=== PATIENT | female | born 1990 | race Caucasian/White ===

== ENCOUNTER 2019-05-06 22:31 | Observation (INO) ==
[2019-05-06 22:56] LABS: Bilirubin,Urine Negative (Negative); Blood,Urine Negative (Negative); Clarity,Urine Cloudy (Clear); Color,Urine Yellow (Yellow); Glucose,Urine (UA) Normal (Normal); Ketones,Urine Trace mg/dL (Negative); Leukocyte Esterase,Urine Negative (Negative); Nitrite,Urine Negative (Negative); PH,Urine 6.5 pH Units (5.0-8.0); Protein,Urine Negative (Neg-Trace); Specific Gravity,Urine 1.009 (1.010-1.025); Urobilinogen,Urine Normal (Normal)
[2019-05-06 22:59] LABS: Bacteria,Urine Few per hpf (None-Few); Hyaline Casts,Urine None Seen per lpf (None-Few); RBC,Urine 0-3 per hpf (0-3); Squamous Epithelial Cell,Urine Many per lpf (None-Few)
[2019-05-06 23:07] LABS: Amphetamine Screen,Urine Negative ng/mL (Cutoff=1000); Barbiturate Screen,Urine Negative ng/mL (Cutoff=200); Benzodiazepines Screen,Urine Negative ng/mL (Cutoff=200); Cannabinoid Screen,Urine Negative ng/mL (Cutoff = 50); Cocaine Screen,Urine Negative ng/mL (Cutoff= 300); Opiate Screen,Urine Negative ng/mL (Cutoff=300); Phencyclidine Screen,Urine Negative ng/mL (Cutoff=25)
[2019-05-07 00:22] LABS: Trichomonas DNA Not Detected (Not Detect)
[2019-05-07 00:23] LABS: Candida DNA Not Detected (Not Detect); Gardnerella DNA Not Detected (Not Detect)
--- NOTE | 2019-05-07 00:50 | Discharge Summary ---
Date of Encounter: 05/07/19 Time of Encounter: 00:50 - Discharge Diagnosis (1) 34 weeks gestation of Priority: Primary Status: Acute Comments: Follow-up as scheduled Discharge home (2) Vaginal discharge during in third trimester Priority: Secondary Status: Acute Comments: UA showed mild dehydration-advised to increase oral hydration Vaginosis panel negative - Discharge Medications Prescriptions: No Action Flintstones 1 tab PO DAILY Melatonin/Pyridoxine HCl (B6) [Melatonin 1 mg Tablet] 1 mg PO DAILY PRN PRN Reason: Insomnia Home Medications: Flintstones 1 tab PO DAILY 05/06/19 [History] Melatonin/Pyridoxine HCl (B6) [Melatonin 1 mg Tablet] 1 mg PO DAILY PRN 05/06/19 [History] Allergies/Adverse Reactions: Allergy/AdvReac Type Severity Reaction Status Date / Time niacin Allergy Swelling Verified 05/06/19 22:58 of Lip/Tongue/Throat vancomycin Allergy Swelling Verified 05/06/19 22:58 of Lip/Tongue/Throat Data Procedures and tests throughout hospitalization: Laboratory Tests 05/06/19 05/06/19 05/06/19 22:40 22:40 23:11 Urine Color Yellow Urine Clarity Cloudy A Urine pH 6.5 Ur Specific [place] 1.009 L Urine Protein Negative Urine Glucose (UA) Normal Urine Ketones Trace H Urine Blood Negative Urine Nitrite Negative Urine Bilirubin Negative Urine Urobilinogen Normal Ur Leukocyte Esterase Negative Urine Microscopic RBC 0-3 Urine Microscopic WBC 3-5 H Ur Squamous Epith Cells Many H Urine Bacteria Few Hyaline Casts None Seen Ur Culture Indicated? YES A Urine Opiates Screen Negative Ur Buprenorphine Scrn Negative Ur Barbiturates Screen Negative Ur Phencyclidine Scrn Negative Ur Amphetamines Screen Negative U Benzodiazepines Scrn Negative Urine Cocaine Screen Negative U Marijuana (THC) Screen Negative Ur Drug Screen Interp See Below Lissy species DNA Not Detected Gardnerella DNA Probe Not Detected Trichomonas DNA Probe Not Detected Labs on day of discharge: Labs from last 24 hours 05/06/19 05/06/19 05/06/19 23:11 22:40 22:40 Urine Color Yellow Urine Clarity Cloudy A Urine pH 6.5 Ur Specific [place] 1.009 L Urine Protein Negative Urine Glucose (UA) Normal Urine Ketones Trace H Urine Blood Negative Urine Nitrite Negative Urine Bilirubin Negative Urine Urobilinogen Normal Ur Leukocyte Esterase Negative Urine Microscopic RBC 0-3 Urine Microscopic WBC 3-5 H Ur Squamous Epith Cells Many H Urine Bacteria Few Hyaline Casts None Seen Ur Culture Indicated? YES A Urine Opiates Screen Negative Ur Buprenorphine Scrn Negative Ur Barbiturates Screen Negative Ur Phencyclidine Scrn Negative Ur Amphetamines Screen Negative U Benzodiazepines Scrn Negative Urine Cocaine Screen Negative U Marijuana (THC) Screen Negative Ur Drug Screen Interp See Below Lissy species DNA Not Detected Gardnerella DNA Probe Not Detected Trichomonas DNA Probe Not Detected Preliminary micro results at discharge 05/06/19 22:40 Urine Culture - Preliminary Urine,Clean Catch Culture is incubating. 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 She reports she was very upset regarding the stress of preparing for her new baby as well as family illness. She states she was crying and she felt a gush of fluid. Later on she went to the bathroom and when she was done urinating she felt more fluid come out. This caused her to feel more panicked. She presented and was nitrazine negative and vaginosis panel n egative. Her follow-up as scheduled within the week and she was advised to keep that appointment. Time Attestation: Total time spent providing and/or coordinating discharge services: Time Spent: Less than 30 minutes Exam - Constitutional General appearance IM: A&O X 3, pleasant, no acute distress, answers questions appropriately - Respiratory Respiratory exam: Present: CTAB - Cardiovascular Cardiovascular exam IM: Present: RRR, +S1, +S2 - GI/Abdominal GI/Abdominal exam IM: normal bowel sounds, no peritoneal signs - Rectal Rectal exam: deferred - Uterine Tone: Firm - Extremities Exam Extremities exam IM: Present: full ROM, normal capillary refill, normal inspection, radial pulses palpable and symmetrical - Neurological Exam Neurological exam: alert, CN II-XII intact, normal gait, oriented X3, reflexes normal, no focal deficits, strengths equal and symetr throughout - VTE Reasons for not Prescribing Prophylaxis: Treatment not Indicated - Low risk for VTE
== END 2019-05-07 00:57 | disposition home or self-care (01) ==
LOC: 1NENULAB
PROVIDERS: ADMIT Advanced Practice Midwife; ATTEND Advanced Practice Midwife

== ENCOUNTER 2019-05-12 21:31 | Observation (INO) ==
[2019-05-12] MEDS ORDERED: Ondansetron 4 MG/2 ML VIAL IVP PRN (21:45)
[2019-05-12] MEDS ORDERED: Ringers Solution, Lactated 1,000 ML IVC SCH (21:45)
[2019-05-12 22:20] LABS: Basophils % 0.2 %; Eosinophils # 0.1 K/mcL (0.0-0.6); Eosinophils % 0.6 %; Hematocrit 36.2 % (35.3-44.9); Hemoglobin 11.7 g/dL (11.5-15.4); Immature Granulocytes % 0.3 % (0-4); Lymphocytes % 8.2 %; Mean Corpuscular HGB Conc 32.3 g/dL (31.6-35.5); Mean Corpuscular Hemoglobin 28.7 pg (28.0-33.3); Mean Corpuscular Volume 88.9 fL (83.0-100.0); Mean Platelet Volume 10.8 fL (9.4-12.4); Monocytes # 0.6 K/mcL (0.0-1.3); Monocytes % 4.9 %; Platelet Count 171 K/mcL (140-400); Red Blood Count 4.07 M/mcL (3.82-4.97); Red Cell Distribution Width 13.5 % (11.5-14.5); Segmented Neutrophils % 85.8 %; White Blood Count 11.7 K/mcL (4.3-11.1)
[2019-05-12 22:36] LABS: BUN/Creatinine Ratio 13 (6-26); Blood Urea Nitrogen 7 mg/dL (6-20); Calcium 8.7 mg/dL (8.6-10.3); Carbon Dioxide 19 mEq/L (23-29); Chloride 108 mEq/L (98-107); Glucose 89 mg/dL (70-105); Osmolality,Calculated 279 (280-300); Potassium 3.6 mEq/L (3.5-5.1); Sodium 136 mEq/L (136-145); eGFR For African Americans > 60 (> 60); eGFR For Non-African Americans > 60 (> 60)
[2019-05-12] MEDS ORDERED: Famotidine 20 MG/2 ML VIAL IVP ONE (23:23)
[2019-05-13 00:22] LABS: Bilirubin,Urine Negative (Negative); Blood,Urine Negative (Negative); Clarity,Urine Turbid (Clear); Color,Urine Yellow (Yellow); Glucose,Urine (UA) Normal (Normal); Ketones,Urine >=160 mg/dL (Negative); Leukocyte Esterase,Urine Small (Negative); Nitrite,Urine Negative (Negative); Protein,Urine Trace mg/dL (Neg-Trace); Specific Gravity,Urine 1.026 (1.010-1.025); Urobilinogen,Urine Normal (Normal)
[2019-05-13 00:25] LABS: Bacteria,Urine Many per hpf (None-Few); Squamous Epithelial Cell,Urine Many per lpf (None-Few)
[2019-05-13 00:30] LABS: Amphetamine Screen,Urine Negative ng/mL (Cutoff=1000); Barbiturate Screen,Urine Negative ng/mL (Cutoff=200); Benzodiazepines Screen,Urine Negative ng/mL (Cutoff=200); Cannabinoid Screen,Urine Negative ng/mL (Cutoff = 50); Cocaine Screen,Urine Negative ng/mL (Cutoff= 300); Opiate Screen,Urine Negative ng/mL (Cutoff=300); Phencyclidine Screen,Urine Negative ng/mL (Cutoff=25)
[2019-05-13 00:39] LABS: Mucus,Urine Moderate (Few); WBC,Urine 15-30 per hpf (0-3)
[2019-05-13] MEDS ORDERED: Acetaminophen 325 MG TABLET PO ONE (00:42)
[2019-05-13 01:38] LABS: Candida DNA Not Detected (Not Detect); Gardnerella DNA Not Detected (Not Detect); Trichomonas DNA Not Detected (Not Detect)
== END 2019-05-13 01:20 | disposition home or self-care (01) ==
LOC: 1NENULAB
PROVIDERS: ADMIT Advanced Practice Midwife; ATTEND Advanced Practice Midwife

== ENCOUNTER 2019-06-08 08:00 | Inpatient (IN) ==
[2019-06-08] MEDS ORDERED: Famotidine 20 MG/2 ML VIAL IVP PRN (08:37)
[2019-06-08] MEDS ORDERED: Naloxone 0.4 MG/ML INJ IVP PRN (08:37)
[2019-06-08] MEDS ORDERED: *HR* Nalbuphine 10 MG/ML AMPUL IVP PRN (08:37)
[2019-06-08] MEDS ORDERED: Metoclopramide 10 MG/2 ML VIAL IVP PRN (08:37)
[2019-06-08] MEDS ORDERED: Lidocaine 1% 20 ML MDV INFILT PRN (08:37)
[2019-06-08] MEDS ORDERED: miSOPROStol 25 MCG TABLET PO PRN (08:37)
[2019-06-08] MEDS ORDERED: Ondansetron 4 MG/2 ML VIAL IVP PRN (08:37)
[2019-06-08] MEDS ORDERED: Oxytocin 20 units/ LR 1000 mL 20 UNIT/1,000 ML BAG IVC SCH (08:45)
[2019-06-08] MEDS ORDERED: Ringers Solution, Lactated 1,000 ML IVC SCH (08:45)
[2019-06-08 08:59] LABS: Basophils % 0.2 %; Eosinophils # 0.1 K/mcL (0.0-0.6); Eosinophils % 0.7 %; Hematocrit 33.5 % (35.3-44.9); Hemoglobin 10.6 g/dL (11.5-15.4); Immature Granulocytes % 0.7 % (0-4); Lymphocytes # 2.1 K/mcL (0.6-4.6); Lymphocytes % 20.3 %; Mean Corpuscular HGB Conc 31.6 g/dL (31.6-35.5); Mean Corpuscular Hemoglobin 27.5 pg (28.0-33.3); Mean Corpuscular Volume 86.8 fL (83.0-100.0); Mean Platelet Volume 10.9 fL (9.4-12.4); Monocytes % 9.4 %; Platelet Count 236 K/mcL (140-400); Red Blood Count 3.86 M/mcL (3.82-4.97); Red Cell Distribution Width 14.5 % (11.5-14.5); Segmented Neutrophils % 68.7 %; White Blood Count 10.2 K/mcL (4.3-11.1)
[2019-06-08 09:08] LABS: Amphetamine Screen,Urine Negative ng/mL (Cutoff=1000); Barbiturate Screen,Urine Negative ng/mL (Cutoff=200); Benzodiazepines Screen,Urine Negative ng/mL (Cutoff=200); Cannabinoid Screen,Urine Negative ng/mL (Cutoff = 50); Cocaine Screen,Urine Negative ng/mL (Cutoff= 300); Opiate Screen,Urine Negative ng/mL (Cutoff=300); Phencyclidine Screen,Urine Negative ng/mL (Cutoff=25)
--- NOTE | 2019-06-08 10:57 | OB/GYN History & Physical ---
Date of Encounter: 06/08/19 Time of Encounter: 10:53 Assessment and Plan (1) Elective induction of labor planned Current visit: Yes Status: Acute (2) 39 weeks gestation of Current visit: Yes Status: Acute Under the care of [place] midwives (3) NST (non-stress test) reactive Current visit: No Status: Acute 135 bpm No decels, 15x15 acels, category 1 tracing (4) H/O supraventricular tachycardia Current visit: Yes Status: Acute Patient with history of SVT in . Has been seen and cleared by [facility]PER[facility] team. History of Present Illness Chief complaint: scheduled induction 39 weeks HPI: Ms. Cárdenas is a 28 year old female 001, at 39 weeks and 0 days p resenting for scheduled induction. The patient endorses movement, and irregular contractions. She denies a fluid gush or bloody show. She denies a history of UTI or STI during this . She denies alcohol, tobacco, illicit drug use during this she denies preeclampsia or gestational diabetes. Patient's first was complicated after with a hemorrhage, and SVT. Patient follows at [place] [facility]. 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 O+ Heb B NR HIV negative Varicella positive Rubella positive GBS negative Past Med Surg Social Fam HX - Past Medical History Attestation: Yes The following information was validated with the patient. Medical history: SVT, other Additional medical history: migranes Psychiatric history: anxiety - Past Surgical History Surgical History: other Additional surgical history: wisdom teeth - Social History Smoking Status: Never smoker Smokeless Tobacco Status: No Alcohol use: none Drug use: none - Family History Father Adopted: No Family Member Ethnicity: Non- Living Status: Still Living Hx Family Cardiac Disorders: No Hx Family Respiratory Disorders: No Hx Family Cancer: No Hx Family GI Disorders: No Hx Family Endocrine Disorder: Yes (diabetes) Hx Family Musculoskeletal Disorders: No Hx Family Neuromuscular Disorders: No Hx Family Neurologic Disorders: No Hx Family HEENT Disorders: No Hx Family Autoimmune Disorders: No Hx Family Reproductive Disorders: No Hx Family Psychosocial Disorders: No Hx Family Medical Disorders: No Obstetrical History - Pregnancies : 2 Para: 1 Term: 0 : 0 Ab's: 0 Livin - History/Complications History/Complications: She had SVT, was never converted, on metoprolol in past no longer She had a hemorrhage in the past Medications and Allergies Tylenol 500 mg PO Q6-12H PRN 05/12/19 [History] Allergy/AdvReac Type Severity Reaction Status Date / Time niacin Allergy Swelling Verified 05/12/19 21:49 of Lip/Tongue/Throat vancomycin Allergy Swelling Verified 05/12/19 21:49 of Lip/Tongue/Throat Review of System OB - Constitutional Constitutional ROS IM: headache(s), no fatigue, no fever(s), no malaise, no weakness - Cardiovascular Cardiovascular: no chest pain, no dyspnea on exertion - Respiratory Respiratory: no cough, no dyspnea on exertion, no wheezing - Gastrointestinal Gastrointestinal: constipation, no abdominal pain, no diarrhea, no nausea, no vomiting - Genitourinary Genitourinary: no abnormal vaginal bleeding, no dysuria, no flank pain, no pelvic pain, no urinary incontinence, no vaginal discharge - Psychiatric Psychiatric: no anhedonia, no anxiety, no depression Exam - Constitutional Constitutional: well developed, well nourished, no acute distress, average body habitus - HEENT HEENT: EOMI, PERRL, Normocephaly, Mucus Membranes Moist - Neck Neck exam: full ROM - Lungs Respiratory exam: CTAB - Cardiovascular Cardiovascular exam: RRR, +S1, +S2 - Abdomen Abdomen: Present: gravid, non tender - Extremities Extremities exam: full ROM, normal inspection, radial pulses palpable and symmetrical - Cervix Dilation: 2 (RN Exam) Effacement: 70 Station: -2 - Uterus Uterus exam: Present: normal size - Anus/Rectum Anus/Rectum: Present: normal perianal skin Results Result Diagrams: 06/08/19 08:40 Abnormal lab results Hgb 10.6 g/dL (11.5-15.4) L 06/08/19 08:40 Hct 33.5 % (35.3-44.9) L 06/08/19 08:40 MCH 27.5 pg (28.0-33.3) L 06/08/19 08:40 All other labs normal. - VTE Reasons for not Prescribing Prophylaxis: Treatment not Indicated - Low risk for VTE
--- NOTE | 2019-06-08 11:09 | Event Note ---
Date of Encounter: 06/08/19 Time of Encounter: 11:07 Double cervical ripening balloon placed after patient consent obtained. Placed with minimal difficulty, 60 mL sterile water instilled into uterine balloon, 40 mL sterile water instilled into vaginal balloon. Patient tolerated without difficulty. Plan of care discussed with patient. Will recheck cervix in 4 hours May have IV pain medicine or epidural when she desires.
[2019-06-08] MEDS ORDERED: Epidural Premix (fent/bupiv) 110 ML EP SCH (12:00)
[2019-06-08] MEDS ORDERED: Epidural Premix (fent/bupiv) 110 ML EP ONE (12:06)
--- NOTE | 2019-06-08 15:57 | OB Labor Progress Note ---
Date of Encounter: 06/08/19 Time of Encounter: 15:55 Labor Progress Note - Subjective Subjective: Patient comfortable with epidural in place. - Vital Signs Vital Signs: WNL - Cervix Cervix: 5-6/80/-2 - Heart Tones Heart Tones: FHR 120 bpm, moderate variability, +15x15 accels, no decels. - [place]: 2-4 minutes - Interventions Interventions: SVE per RN Arreguin removed - Plan Plan: Start Pitocin when possible AROM when appropriate Anticipate
--- NOTE | 2019-06-08 20:05 | OB Labor Progress Note ---
Date of Encounter: 06/08/19 Time of Encounter: 20:02 Labor Progress Note - Subjective Subjective: Patient resting comfortably with epidural in place - Vital Signs Vital Signs: WNL - Cervix Cervix: 6/80/-2 - Heart Tones Heart Tones: FHR 120 bpm, moderate variability, +15x15 accels, no decels - [place]: Q2-3 min - Interventions Interventions: SVE AROM for moderate amount of clear fluid, small bloody show IUPC inserted for accurate contraction monitoring. - Plan Physician notified: Yes Physician notified details: Dr. Bar on unit and notified of SVE Plan: Continue Pitocin to keep MVU >200 Frequent position changes Anticipate
[2019-06-08] MEDS ORDERED: Acetaminophen 325 MG TABLET PO ONE (20:45)
--- NOTE | 2019-06-08 23:13 | OB Labor Progress Note ---
Date of Encounter: 06/08/19 Time of Encounter: 23:10 Labor Progress Note - Subjective Subjective: Patient resting with epidural in place Reports feeling pressure with contractions - Cervix Cervix: 8-9 cm/90/-1 - Heart Tones Heart Tones: FHR 120 bpm, moderate variability, +15x15 accels, occasional late decel. - [place]: q 2 hrs - Interventions Interventions: SVE - Plan Plan: Continue Pitocin Anticipate
--- NOTE | 2019-06-09 01:10 | OB/GYN Procedure Note ---
Delivery - Delivery Date: 06/09/19 Provider: Rossy Faustin Intrapartum events: none Delivery induction: pimentel, misoprostol Delivery augmentation: rupture of membranes, pitocin Delivery monitor: external FHT, internal uterine Anesthesia: epidural Quantitated Blood Loss: 50 - (s) A Infant Delivery Date: 06/09/19 Delivery Time: 00:02 Presentation: vertex Position: ADRIÁN Route of delivery: Gender: Female Viability: Viable Pounds: 7 Ounces: 3 Weight Gram: 3.26 kg at 1 minute: 7 at 5 mins: 9 Shoulder Dystocia: not encountered Specimens collected: cord blood Placenta: spontaneous Cord: 3 umbilical vessels - Repair Episiotomy: none Laceration Description: None - Complications Delivery complications: none Delivery comments: To room due to patient feeling like she needs to push. I was gowned and gloved and together with Shahab Watts DO, PGY1, spontaneously delivered a viable female over intact perineum. Infant placed on maternal abdomen for drying and stimulation. Cord clamped and cut after pulsation ceased. Spontaneous delivery of intact placenta, EBL 50 mL's. No nuchal cord, shoulder dystocia, or meconium encountered. Mother and in kangaroo care for 2 hour recovery. - Disposition Mom disposition: stable in LDR disposition: stable in LDR
[2019-06-09] MEDS ORDERED: Oxytocin 20 units/ LR 1000 mL 20 UNIT/1,000 ML BAG IVC SCH (03:00)
[2019-06-09] MEDS ORDERED: Lanolin 7 G OINT...G. TP PRN (03:00)
[2019-06-09] MEDS ORDERED: Benzocaine/Menthol 56 GM AEROSOL SPRAY TP PRN (03:00)
[2019-06-09] MEDS: Ibuprofen 600 MG TABLET PO PRN ×4 (03:06→22:21)
[2019-06-09] MEDS: Acetaminophen 325 MG TABLET PO PRN ×2 (05:30→20:16)
--- NOTE | 2019-06-09 06:45 | Anesthesia Evaluation PreOp ---
Date of Encounter: 06/09/19 Time of Encounter: 12:00 - Past History Planned Operation: kate Cardiac History: Denies any Significant Hx Pulmonary History: Denies Any Significant HX BOILER SETTER History: Denies Any Significant HX Other Medical History: Denies Any Significant HX Anesthesia History: No Prior Anesthetic Complications : Yes Test: Positive Alcohol Use: none Drug use: none Medications and Allergies Tylenol 500 mg PO Q6-12H PRN 05/12/19 [History] Allergy/AdvReac Type Severity Reaction Status Date / Time niacin Allergy Swelling Verified 05/12/19 21:49 of Lip/Tongue/Throat vancomycin Allergy Swelling Verified 05/12/19 21:49 of Lip/Tongue/Throat - Meds/Allergy Pre-op Review Medications Reviewed: Yes Allergies Reviewed: Yes Beta Blockers on Current Med List: No Anesthesia Results - Labs 06/08/19 08:40 Anesthesia Exam - HEENT Pupil (Motor): Pupils equal Mallampati: II Teeth: Normal Oral Opening: Greater than 3 - BOILER SETTER LOC: Oriented BOILER SETTER Motor: Normal RUE, Normal LUE, Normal RLE, Normal LLE, Normal Face BOILER SETTER Sensory: Normal: RUE, LUE, RLE, LLE, Face - Cardiac Rhythm: Regular Murmur: None JVD: No Carotid Bruit: No - Pulmonary Breath Sounds: bilateral Clear Respiratory Effort: Symmetrical Anesthesia Assess/Plan ASA Score: 2 Level of consciousness: Cooperative, Anxious Anesthetic Plan: Epidural
--- NOTE | 2019-06-09 06:47 | Anesthesia Procedures ---
Date of Encounter: 06/09/19 Time of Encounter: 12:00 Procedures: Anesthesia - Epidural/Spinal Patient ID/Chart reviewed: Yes Patient examined: Yes OB Eval: Gestational age: 39 OB Eval: : 2 OB Eval: Hx Para: 1 OB Eval: Contractions: Non-stressed pattern Supplemental Oxygen: None/Room Air Site Prep: Aseptic Technique, Sterile prep and drape, Povidone-Iodine 1% Patient position: upright Amount of Local Anesthetic used: 3 Touhy Needle Gauge: 18 Touhy Needle Depth (cm): 5 Catheter Depth at Skin (cm): 8 Test Dose (1.5% Lido + Epi): Volume given (mls): 3 Test Dose Result: Negative Infusion Rate (mls/hr): [address]: Tegaderm, Tape Interspace Used: L4-L5 Loss of Resistance (THA): Yes Blood: No CSF: No Paresthesia: No Vitals + FHT's: stable throughout see nursing notes
[2019-06-09] MEDS ORDERED: Prenatal Vit/FA 1 EACH TABLET PO SCH (09:00)
[2019-06-09 20:06] VITALS: BP 112/72
[2019-06-10] MEDS: Ibuprofen 600 MG TABLET PO PRN (04:22)
--- NOTE | 2019-06-10 09:15 | Discharge Summary ---
Date of Encounter: 06/10/19 Time of Encounter: 09:13 - Discharge Diagnosis (1) Vaginal delivery Priority: Primary Status: Acute Comments: Feeling well Tolerating regular diet Pain well-controlled with by mouth pain meds Ambulating independently Voiding independently Lochia light Passing flatus, no BM yet Vital signs stable Discharge home today (2) Breast feeding status of mother Priority: Secondary Status: Acute Comments: Community resources provided - Discharge Medications Prescriptions: New Acetaminophen [Tylenol] 650 mg PO Q6HR PRN tablet PRN Reason: Mild Pain Ibuprofen [Motrin] 600 mg PO Q6HR PRN #30 tablet PRN Reason: Cramping Benzocaine/Menthol [place] [Dermoplast [place]] 1 appl TP QID PRN aerosol PRN Reason: See Comments Docusate [Colace] 100 mg PO BID #30 capsule Lanolin [Lansinoh] 1 appl TP TID PRN oint...g. PRN Reason: sore nipples Continued Tylenol 500 mg PO Q6-12H PRN PRN Reason: Nasal Congestion Home Medications: Tylenol 500 mg PO Q6-12H PRN 05/12/19 [History] Acetaminophen [Tylenol] 650 mg PO Q6HR PRN tablet 06/10/19 [Rx] Benzocaine/Menthol [place] [Dermoplast [place]] 1 appl TP QID PRN aerosol 06/10/19 [Rx] Docusate [Colace] 100 mg PO BID #30 capsule 06/10/19 [Rx] Ibuprofen [Motrin] 600 mg PO Q6HR PRN #30 tablet 06/10/19 [Rx] Lanolin [Lansinoh] 1 appl TP TID PRN oint...g. 06/10/19 [Rx] Allergies/Adverse Reactions: Allergy/AdvReac Type Severity Reaction Status Date / Time niacin Allergy Swelling Verified 05/12/19 21:49 of Lip/Tongue/Throat vancomycin Allergy Swelling Verified 05/12/19 21:49 of Lip/Tongue/Throat Data Procedures and tests throughout hospitalization: Laboratory Tests 06/08/19 06/08/19 08:40 08:40 WBC 10.2 RBC 3.86 Hgb 10.6 L Hct 33.5 L MCV 86.8 MCH 27.5 L MCHC 31.6 RDW 14.5 Plt Count 236 MPV 10.9 Immature Gran % 0.7 Seg Neutrophils % 68.7 Lymphocytes % 20.3 Monocytes % 9.4 Eosinophils % 0.7 Basophils % 0.2 Neutrophils # 7.0 Lymphocytes # 2.1 Monocytes # 1.0 Eosinophils # 0.1 Basophils # 0.0 Urine Opiates Screen Negative Ur Buprenorphine Scrn Negative Ur Barbiturates Screen Negative Ur Phencyclidine Scrn Negative Ur Amphetamines Screen Negative U Benzodiazepines Scrn Negative Urine Cocaine Screen Negative U Marijuana (THC) Screen Negative Ur Drug Screen Interp See Below Date of admission: 06/08/19 08:01 Primary care physician: PCP NONE Consults: 06/09/19 03:00 Consult to Senior Electrical Designer [CONS] Routine Comment: Vaginal delivery, consult needed Discharging clinician: Diane Petty Anticipated date of discharge: 06/10/19 - Patient Status Disposition: Home, Self-Care Condition: Good Functional capacity at discharge: independent ambulation Overall status at discharge: patient is progressing back to baseline - Discharge Instructions Follow Up With: NONE,PCP [Primary Care Provider] - Diane Petty [Advanced Practice Nurse] - - Diet and Activity Activity: increase activity as tolerated Diet: regular diet Hospital Course Reason for admission: induction of labor, IUP at term Delivery: Episiotomy: none Laceration: none Other procedures: none complications: none Discharge diagnosis: IUP at term delivered baby: female Time Attestation: Total time spent providing and/or coordinating discharge services: Time Spent: Less than 30 minutes Exam - Constitutional Vitals: Temp Pulse Resp BP Pulse Ox 98.3 F 72 16 112/72 99 06/09/19 20:05 06/09/19 20:05 06/09/19 20:05 06/09/19 20:05 06/09/19 20:05 General appearance IM: A&O X 3, pleasant, no acute distress, obese, answers questions appropriately - Respiratory Respiratory exam: Present: CTAB - Cardiovascular Cardiovascular exam IM: Present: RRR, +S1, +S2 - GI/Abdominal GI/Abdominal exam IM: normal bowel sounds, no peritoneal signs - Rectal Rectal exam: deferred - Uterine Tone: Firm Uterus Position: 2 Fingers Below Umbilicus, Midline - Extremities Exam Extremities exam IM: Present: full ROM, normal capillary refill, normal inspection, radial pulses palpable and symmetrical - Neurological Exam Neurological exam: alert, CN II-XII intact, normal gait, oriented X3, reflexes normal, no focal deficits, strengths equal and symetr throughout - Psychiatric Additional comments: Patient reports history of anxiety. Signs and symptoms of depression and anxiety discussed with patient and partner and both verbalized understanding of when to seek help.
== END 2019-06-10 10:22 | disposition home or self-care (01) | DRG 807 ==
LOC: 1NENULAB 08:01 → 1NENUOBS 06-09 04:03
PROVIDERS: ADMIT Registered Nurse; ATTEND Registered Nurse

== ENCOUNTER 2021-03-10 21:33 | Inpatient (IN) ==
[~2021-03-10 21:33] MED LIST: *HR* Nalbuphine 10 MG/ML AMPUL IV PRN; Famotidine 20 MG/2 ML VIAL IVP PRN; Metoclopramide 10 MG/2 ML VIAL IVP PRN; Naloxone 0.4 MG/ML INJ IVP PRN; Ondansetron 4 MG/2 ML VIAL IVP PRN; Oxytocin 20 units/ LR 1000 mL 20 UNIT/1,000 ML BAG IVC SCH; Ringers Solution, Lactated 1,000 ML IVC SCH
[2021-03-10 22:03] LABS: Basophils % 0.2 %; Eosinophils % 0.4 %; Hematocrit 35.4 % (35.3-44.9); Hemoglobin 11.6 g/dL (11.5-15.4); Immature Granulocytes % 0.4 % (0-4); Lymphocytes # 1.5 K/mcL (0.6-4.6); Lymphocytes % 15.5 %; Mean Corpuscular HGB Conc 32.8 g/dL (31.6-35.5); Mean Corpuscular Hemoglobin 30.4 pg (28.0-33.3); Mean Corpuscular Volume 92.7 fL (83.0-100.0); Mean Platelet Volume 10.6 fL (9.4-12.4); Monocytes # 0.6 K/mcL (0.0-1.3); Monocytes % 6.3 %; Neutrophils # 7.5 K/mcL (1.6-8.9); Platelet Count 189 K/mcL (140-400); Red Blood Count 3.82 M/mcL (3.82-4.97); Red Cell Distribution Width 18.2 % (11.5-14.5); Segmented Neutrophils % 77.2 %; White Blood Count 9.7 K/mcL (4.3-11.1)
[2021-03-10 22:14] LABS: Amphetamine Screen,Urine Negative ng/mL (Cutoff=1000); Barbiturate Screen,Urine Negative ng/mL (Cutoff=200); Benzodiazepines Screen,Urine Negative ng/mL (Cutoff=200); Cannabinoid Screen,Urine Negative ng/mL (Cutoff = 50); Cocaine Screen,Urine Negative ng/mL (Cutoff= 300); Opiate Screen,Urine Negative ng/mL (Cutoff=300); Phencyclidine Screen,Urine Negative ng/mL (Cutoff=25)
[2021-03-10] MEDS ORDERED: EPHEDrine 50 MG/ML VIAL IVP PRN (22:26)
[2021-03-10] MEDS ORDERED: *HR* FentaNYL (PF) 100 MCG/2 ML VIAL EP ONE (22:26)
[2021-03-10] MEDS ORDERED: Ropivacaine/PF 0.2% 20 ML VIAL ONE (22:29)
[2021-03-10] MEDS ORDERED: Epidural Premix (fent/bupiv) 110 ML EP SCH (22:30)
[2021-03-10] MEDS ORDERED: Epidural Premix (fent/bupiv) 110 ML EP ONE (22:30)
[2021-03-11] MEDS ORDERED: *HR* FentaNYL (PF) 100 MCG/2 ML VIAL ONE (05:35)
[2021-03-11] MEDS ORDERED: Prenatal Vit/FA 1 EACH TABLET PO SCH (11:00)
[2021-03-11] MEDS ORDERED: Benzocaine/Menthol 56 GM AEROSOL SPRAY TP PRN (11:00)
[2021-03-11] MEDS ORDERED: Oxytocin 20 units/ LR 1000 mL 20 UNIT/1,000 ML BAG IVC SCH (11:00)
[2021-03-11] MEDS ORDERED: Lanolin 7 G OINT...G. TP PRN (11:00)
[2021-03-11] MEDS: Ibuprofen 600 MG TABLET PO PRN ×2 (11:38→19:01)
[2021-03-11] MEDS: Acetaminophen 325 MG TABLET PO PRN ×2 (14:41→23:08)
[2021-03-11] MEDS: *HR* HYDROcodone/Acet 5/325 mg TABLET PO PRN (21:30)
[2021-03-12] MEDS: Ibuprofen 600 MG TABLET PO PRN ×2 (01:07→08:07)
[2021-03-12] MEDS: *HR* HYDROcodone/Acet 5/325 mg TABLET PO PRN (06:17)
[2021-03-12 07:39] VITALS: BP 126/82
== END 2021-03-12 12:03 | disposition home or self-care (01) | DRG 807 ==
LOC: 1NENULAB → 1NENUOBS 03-11 10:37
PROVIDERS: ADMIT Advanced Practice Midwife; ATTEND Advanced Practice Midwife